=== PATIENT | male | born 1985 | race Two or more races ===

== ENCOUNTER 2019-05-13 16:16 | Emergency (ER) | payer SELFPAY ==
[~2019-05-13] VITALS: Ht 182.9 cm; Wt 81.6 kg
[2019-05-13] MEDS ORDERED: PANTOPRAZOLE 40 MG VIAL IV ONE (17:30)
[2019-05-13 17:40] LABS: BASOPHILS % (AUTO) 0.4 % (0.0-2.0); EOSINOPHILS % (AUTO) 3.7 % (0.0-6.0); HEMATOCRIT 48 % (39-51); HEMOGLOBIN 16.8 g/dL (13.5-17.5); LYMPHOCYTES # (AUTO) 1.8 /CMM (0.8-4.8); LYMPHOCYTES % (AUTO) 26.7 % (20.0-44.0); MEAN CORPUSCULAR HGB CONC 35 g/dl (31.0-36.0); MEAN CORPUSCULAR VOLUME 95 fL (80-96); MONOCYTES # (AUTO) 0.3 /CMM (0.1-1.30); MONOCYTES % (AUTO) 4.7 % (2.0-12.0); NEUTROPHILS # (AUTO) 4.4 /CMM (1.8-8.9); NEUTROPHILS % (AUTO) 64.5 % (43.0-81.0); PLATELET COUNT (AUTO) 225 /CMM (150-450); RED BLOOD CELL COUNT(AUTO) 5.09 MIL/uL (4.5-6.0); WHITE BLOOD COUNT (AUTO) 6.8 K/uL (4.3-11.0)
[2019-05-13] MEDS ORDERED: PANTOPRAZOLE 40 MG VIAL ONE (17:43)
[2019-05-13 17:48] LABS: CALCIUM, SERUM 8.9 mg/dL (8.5-10.1); CREATININE 0.9 mg/dL (0.6-1.3); POTASSIUM 3.3 mmol/L (3.5-5.1)
[2019-05-13 18:00] LABS: ALBUMIN 4.6 g/dL (3.4-5.0); BILIRUBIN,DIRECT 0.3 mg/dL (0.0-0.2); BILIRUBIN,TOTAL 1.7 mg/dL (0.2-1.0); TOTAL PROTEIN, SERUM 7.9 g/dL (6.4-8.2)
[2019-05-13] MEDS ORDERED: POTASSIUM CHLORIDE 20 MEQ TAB.PRT.SR PO ONE ×2 (18:30→18:59)
--- NOTE | 2019-05-13 19:01 | NUR ---
Patient awake alert non distress continue to monitor
[2019-05-13 19:27] VITALS: BP 145/56
--- NOTE | 2019-05-13 19:27 | NUR ---
Patient discharged to home in stable condition. Written and verbal after care instructions given. Patient verbalizes understanding of instruction.
== END 2019-05-13 19:28 | disposition home or self-care (01) ==
LOC: ER 16:21
DX: R10.13 Epigastric pain (principal); E87.6 Hypokalemia; R94.5 Abnormal results of liver function studies; J45.909 Unspecified asthma, uncomplicated
CPT/HCPCS: 36415; 76705; 80048; 80076; 83690; 85025; 96374; 99284; C9113; J7030 ×2